=== PATIENT | male | born 1940 | race Caucasian/White ===

== ENCOUNTER → 2023-12-12 13:22 | Outpatient (REF) | payer MEDICARE, SELFPAY | LOC: REG 13:22 | PROVIDERS: ATTENDING PHYSICIAN Internal Medicine Critical Care Medicine; FAMILY PHYSICIAN Internal Medicine | DX: J47.9 Bronchiectasis, uncomplicated (principal) | CPT/HCPCS: 71046 ==

== ENCOUNTER → 2024-02-23 15:25 | Outpatient (REF) | payer MEDICARE, SELFPAY | LOC: RAD 15:25 | PROVIDERS: ATTENDING PHYSICIAN Physician Assistant | DX: R05.3 Chronic cough (principal) | CPT/HCPCS: 71046 ==

== ENCOUNTER 2025-03-11 21:30 | Inpatient (IN) | payer MEDICARE, SELFPAY ==
[2025-03-11] VITALS (9 sets, daily range): BP systolic 100–140; BP diastolic 62–117; BMI 27.5; BMI 26.9
[2025-03-11 15:01] LABS: Hematocrit 39.3 % (39.0-52.0); Hemoglobin 13.6 g/dL (13.0-18.0); Mean Corp Hgb Conc. 34.6 g/dL (33.0-37.0); Mean Corpuscular Volume 99.5 fL (80.0-94.0); Nucleated Red Blood Cells % 0 % (-); Platelet Count 233 10^3/uL (130-400); Red Cell Dist. Width 13.2 % (11.5-14.5)
[2025-03-11 15:24] LABS: ALT (SGPT) < 10 U/L (0-50); AST (SGOT) 27 U/L (17-59); Albumin 3.8 g/dl (3.5-5.0); Alkaline Phosphatase 116 U/L (38-126); Blood Urea Nitrogen 29 mg/dl (9-20); Calcium 8.5 mg/dl (8.4-10.2); Carbon Dioxide 24 mmol/L (22-30); Chloride 104 mmol/L (98-107); Glucose 119 mg/dl (70-99); Potassium 4.5 mmol/L (3.5-5.1); Sodium 135 mmol/L (135-145); Total Protein 6.7 g/dl (6.3-8.2); eGFR 24.41
--- NOTE | 2025-03-11 18:21 | ED.GENMED ---
History of Present Illness
General
Chief Complaint: Breathing Problem
Source: patient, spouse and family (Daughter)
Exam Limitations: none
Time Seen by Provider: 03/11/25 17:19
Nursing documentation reviewed up to this point in time: agreed with
History of Present Illness
History of Present Illness:
84-year-old male with a past medical history of hypertension, interstitial lung disease, congestive heart failure, reported history of dementia per family presents to the ER from home for evaluation of shortness of breath. Patient reportedly has
had increased shortness of breath over the past week or so. His says that his symptoms seem to be worse at night and that he wakes up gasping for air and has coughing fits at night. This morning breathing seem to be significantly worse and
palliative care nurse was visiting and noted that he was markedly hypoxic (reportedly in the 70s) and he was referred to the emergency room for assessment. He is on palliative care for his chronic lung disease and congestive heart failure. He does
wear home oxygen as needed�his reports that he wears 2 to 3 L usually at night very rarely during the daytime. Patient is somewhat agitated at being in the emergency room. He does admit to feeling short of breath but denies feeling chest
pain. They have not noticed any swelling in the legs. They have not noticed any fever.
Operating Room Surgical Technologist: Dr. Barfield
Rubber Compounder Formulator: Dr. Cevallos
Past History
Past History
ED Past Medical History: Asthma, HTN, Hypercholesterolemia and Other (Short term memory loss)
ED Past Surgical History: Tonsilectomy and Other
Social History
Tobacco: Former smoker
Alcohol: Daily (Nance 1)
Personal:
Living: with family
Review of Systems
Review of Systems
All Other Systems: ROS reviewed and negative except as documented in HPI and ROS
Constitutional: Denies fever
Respiratory: Reports cough and trouble breathing
Cardiac: Denies chest pain
ABD/GI: Denies abdominal pain, nausea or vomiting
: Denies flank pain
Musculoskeletal: Denies edema, neck pain or back pain
Neurological: Denies dizzy or headache
Phy Exam
Physical Exam
Physical Exam:
General: Awake, alert, somewhat agitated
Head: Normocephalic, atraumatic
Eyes: Conjunctiva normal
Throat: Airway intact, handling secretions
Neck: Trachea midline, no visible JVD noted
Lungs: Patient has pronounced rales at the lung bases bilaterally; he has resting tachypnea and is hypoxic to 82% requiring 6 L nasal cannula
Heart: Regular rate and rhythm, no murmurs, gallops, or rubs appreciated
Abd: Soft, non distended, nontender
Skin: no rash
Extremities: +1 edema in the legs around the lower calf and ankles bilaterally; good pulses in all extremities
Scores
Heart Failure Risk
Heart Failure Risk Score: Yes
History of Stroke or TIA: No
History of intubation for respiratory distress: No
Heart rate on ED arrival >/= 110: No
SaO2 <90% on arrival on room air: Yes
HR >/=110 during 3min walk test (or too ill to perform test): Yes
ECG has acute ischemic changes: No
Urea >/=12mmol/L (BUN 33.6mg/dL): No
Serum CO2>/=35mmol/L: No
Troponin I or T elevated to NH Level (0.4mg/dL): No
NT-proBNP >/=5,000ng/L (5,000pg/ml): Yes
HF Risk Score: 4
Admission Status: HIGH RISK 26.1% Consider SNF treatment or admission to hospital
Heart Score for Chest Pain Patients
STEMI patient?: Not applicable
Withdrawal Assessment of Alcohol
Withdrawal Assessment Completed?: Not applicable
Course
Orders/Labs/Results
Orders:
Orders
03/11/25 14:45
Chest [CR Chest - 2 Views ] Urgent
Comment:
Reason For Exam: sob, hypoxia
03/11/25 14:50
Complete Blood Count/With Diff Urgent
Comprehensive Metabolic Panel Urgent
NT-proBNP Urgent
Comment: ADD ON
03/11/25 18:08
Add On- LAB Urgent
Tests Added?: BNP
03/11/25 18:20
Haloperidol Lactate [Haldol] 2.5 mg IV NOW STA
03/11/25 18:27
Electrocardiogram (*1) Urgent
Reason for Study: Shortness of Breath
EKG- Treatment ONCE
03/11/25 18:44
Furosemide [Lasix] 40 mg IV NOW STA
Abnormal Lab Results
03/11/25
14:50
RBC 3.95 L 10^6/uL
(4.70-6.10)
MCV 99.5 H fL
(80.0-94.0)
MCH 34.4 H pg
(27.0-31.0)
Absolute Neuts (auto) 6.8 H 10^3/uL
(1.4-6.5)
Absolute Lymphs (auto) 0.9 L 10^3/uL
(1.2-3.4)
Absolute Monos (auto) 1.1 H 10^3/uL
(0.1-0.6)
Lymphocytes % 10.2 L %
(20.5-51.1)
Monocytes % 11.9 H %
(1.7-9.3)
BUN 29 H mg/dl
(9-20)
Creatinine 2.5 H mg/dL
(0.7-1.3)
Glucose 119 H mg/dl
(70-99)
03/11/25 14:50
03/11/25 14:50
Vital Signs
Initial and Last Documented VS:
Initial Vital Signs
Temp Pulse Resp BP Pulse Ox
36.8 C 79 28 126/76 82
03/11/25 14:36 03/11/25 14:36 03/11/25 14:36 03/11/25 14:36 03/11/25 14:36
Last Documented Vital Signs
Temp Pulse Resp BP Pulse Ox
36.8 C 78 28 135/117 94
03/11/25 14:36 03/11/25 18:49 03/11/25 14:36 03/11/25 18:49 03/11/25 18:27
MDM/Problems Addressed
Differential Diagnosis Includes:
CHF, pneumonia, interstitial lung disease, anemia
MDM/Problems Addressed:
84-year-old male presents for evaluation of increasing shortness of breath, cough, orthopnea/PND over the past week. He is hypoxic and tachypneic requiring 6 L nasal cannula. With supplemental oxygen his respiratory status stabilized and he is not
exhibiting any signs of respiratory distress. He is agitated, family reports that he has a history of dementia he is trying to get out of bed and pull out wires. Will dose with some IV Haldol for delirium/agitation. He had labs in triage
including CBC which showed no anemia or leukocytosis, CMP which showed acute renal insufficiency with a creatinine of 2.5 from a baseline of 1.6 likely cardiorenal. His chest x-ray appears to show pulmonary edema superimposed on chronic
interstitial disease�overall clinical picture consistent with CHF exacerbation. I did have to add on a proBNP to his triage labs. I do think he requires admission for acute on chronic respiratory failure with hypoxia secondary to CHF exacerbation.
Treat with IV Lasix. Discussed with hospitalist for admission.
Chronic conditions affecting care:
Interstitial lung disease, congestive heart failure
*Radiology
Radiology exam reviewed: preliminary read by ED provider and radiology read reviewed
*Pulse Oximetry
SaO2: 94
Nasal Cannula flow liters per minute: 6
Patient hypoxic: yes (82%)
*EKG
Interpreted by ED Provider?: Yes
Heart Rate: 76
Rate: normal
Rhythm: sinus
Comins: left axis deviation
Interval: first degree heart block
QRS Pattern: right bundle branch block (Incomplete right bundle branch block) and other (Left anterior fascicular block)
Ischemia: other (Possible lateral infarct)
*Critical Care Note
Total Time (30-74mins, 75-104mins- exclusive of procedures): Not Applicable
Data Reviewed
Review of Other/Old Records Reveals: Labs and Records
Source: patient, records, spouse and family
Patient Management
Discussion with other providers: Hospitalist (Discussed with hospitalist)
Escalation/DeEscalation of care consider admission/obs:
Admission indicated
ED Attending Note
-
Portions of this chart may have been created with voice recognition software.� Occasional wrong word or��sound alike� substitutions may have occurred due to the inherent limitations of voice recognition software.
Discharge Plan
Departure
Patient Disposition: Admit
Date of Disposition: 03/11/25
Time of Disposition: 19:14
Admit to doctor: Eli
Presentation/result/management discussed w/ accepting MD/DO: Hospitalist
Discharge Problem:
Acute on chronic respiratory failure with hypoxia, CHF exacerbation, CALVIN (acute kidney injury)
Prescriptions:
No Action
atorvastatin 20 MG tablet
20 mg PO QPM
amlodipine 2.5 MG tablet
2.5 mg PO DAILY
montelukast 10 MG tablet
10 mg PO QPM
ipratropium-albuterol 3 ML solution for nebulization
3 ml inhalation QID Qty: 60 0RF
benzonatate 100 MG capsule
100 mg PO TIDPRN PRN (Reason: cough)
furosemide 40 MG tablet
40 mg PO DAILY Qty: 30 0RF
atorvastatin 20 MG tablet
20 mg PO QPM Qty: 30 0RF
cyanocobalamin (vitamin B-12) 1,000 MCG tablet
1,000 mcg PO DAILY Qty: 30 0RF
dextromethorphan-guaifenesin 10 ML syrup
5 ml PO Q4HPRN PRN (Reason: cough) Qty: 1 0RF
pantoprazole 40 MG tablet,delayed release (DR/EC)
40 mg PO BID Qty: 60 0RF
ferrous sulfate [FeroSul] 325 MG tablet
325 mg PO DAILY Qty: 30 0RF
folic acid 1 MG tablet
1 mg PO DAILY Qty: 30 0RF
fluticasone propionate [Flovent HFA] 1 PUFF HFA aerosol inhaler
2 puff inhalation R DAILY Qty: 0 0RF
prednisone 20 MG tablet
20 mg PO DAILY Qty: 17 0RF
Rx Instructions:
40mg daily for 5 days, 20mg for 5 days, 10mg for 3 days and stop
oxycodone 5 MG tablet
5 mg PO Q4HPRN PRN (Reason: mod pain) Qty: 5 0RF
sennosides-docusate sodium 1 TABLET tablet
1 tab PO DAILYPRN PRN (Reason: constipation) Qty: 5 0RF
apixaban [Eliquis] 2.5 MG tablet
2.5 mg PO BID 14 Days Qty: 28 0RF
Rx Instructions:
take Eliquis 2.5 mg BID for 2 weeks then 5 mg BID thereafter
apixaban [Eliquis] 5 MG tablet
5 mg PO BID Qty: 0 0RF
Rx Instructions:
restart 5 mg BID after 2 weeks of 2.5 mg BID
Referrals:
EDIL, APRIL [Other]
Interventions
Interventions:
*Risk Screen - Suicide Last Done: 03/11/25 14:36
*General Assessment Last Done: 03/11/25 14:36
*Neglect/Abuse Screening Last Done: 03/11/25 14:36
ED- Cardiac Assessment Last Done: 03/11/25 18:27
ED- Pulmonary Assessment Last Done: 03/11/25 18:27
Discharge Date and Time
Print Language: TURKISH
[2025-03-11] MEDS: HALDOL 2.5 MG IV (18:42)
[2025-03-11] MEDS: LASIX 40 MG IV (18:49)
[2025-03-11] MEDS: VERSED 2 MG IV (19:23)
--- NOTE | 2025-03-11 20:25 | HPS.HSE ---
Family Physician
-
Family Physician: APRIL SOLO
Chief Complaint
-
Shortness of breath
History of Present Illness
This is a 84-year-old with past medical history significant for CHF with preserved EF, stage I diastolic dysfunction, dementia, paroxysmal atrial fibrillation on anticoagulation, stage IV CKD, history of pulmonary fibrosis/interstitial lung disease
who is currently on 2 L nocturnal home O2, COPD/asthma who presents to the Emergency Department with shortness of breath over the last 1-1/2 weeks.
Patient unable to provide history secondary to progressive dementia over the last several years. Patient has had shortness of breath for many years now and is currently on nocturnal oxygen over the last several months. Family reported that in the
last 24 weeks he is having increasing oxygen requirement and is using his oxygen now during the daytime. Was defined oxygen saturation of 84% and then 94 to 95% on 2 L. They report incessant coughing especially at night which is productive of
copious amount of phlegm. They have not noted any fevers chills or diaphoresis. He has not complained of having any chest pain. They have not had audible wheezing at home. He has no known sick contacts and he has no recent hospitalizations.
Family reports that his weight is usually around 220 pounds and has not changed recently. He has had 1 recent renal follow-up and told that he has stage IV CKD. DF slightly increase his diuretics from 40 daily to 40 daily and 40 twice daily on
every other day.
On arrival in the emergency department patient was confused similar to his baseline and intermittently agitated requiring sedation. He is tachypneic to the low 30s and high 20s, blood pressure was 120/74 and pulse rate was 78. He is currently
satting 92% on 3 L. His temperature was 98.3. His
Chest ray shows multifocal opacities consistent with possible superimposed pneumonitis and pulmonary fibrosis and possible interstitial pulmonary edema. ECG with sinus rhythm heart rate of [address] or T wave changes. His BNP was
elevated at 2600. CBC was unremarkable. Electrolytes were normal. BUN/creatinine were 29 and 2.5 with a normal glucose.
Medical History
Past Medical History
Past Medical History: Reports Arrhythmia and Other
Additional Past Medical History:
Paroxysmal atrial fibrillation
Hypertension
Interstitial lung disease
LINH
Pulmonary fibrosis on 2 L nocturnal home O2
Asthma/COPD overlap
CKD stage IV
History of eosinophilic pneumonitis
Past Surgical History: Reports Orthopedic
Social History
Tobacco: Former Smoker
Alcohol: None
Drug: None
Living: With Family
Family History
Family History: Not pertinent
Allergies / Home Medications
Allergies reflects when Allergies were last updated in [employer].
Home Medications with original date entered in [employer]
Allergy/Medication List:
Allergies
Allergy/AdvReac Type Severity Reaction Status Date / Time
aspirin Allergy Rash Verified 08/20/21 19:04
Penicillins Allergy Unknown Verified 08/20/21 22:03
Home Medications
amlodipine 2.5 mg tablet 2.5 mg PO DAILY Blood pressure 07/18/21
atorvastatin 20 mg tablet 20 mg PO QPM High cholesterol 07/18/21
ipratropium 0.5 mg-albuterol 3 mg (2.5 mg base)/3 mL nebulization soln 3 ml inhalation QID ##60 07/18/21
montelukast 10 mg tablet 10 mg PO QPM Lung/breathing issues 07/18/21
benzonatate 100 mg capsule 100 mg PO TIDPRN PRN cough 08/14/21
atorvastatin 20 mg tablet 20 mg PO QPM #30 tabs 08/17/21
cyanocobalamin (vitamin B-12) 1,000 mcg tablet 1,000 mcg PO DAILY #30 tabs 08/17/21
dextromethorphan-guaifenesin 10 mg-100 mg/5 mL oral syrup 5 ml PO Q4HPRN PRN cough ##1 08/17/21
ferrous sulfate 325 mg (65 mg iron) tablet (FeroSul) 325 mg PO DAILY #30 tabs 08/17/21
fluticasone propionate 110 mcg/actuation HFA aerosol inhaler (Flovent HFA) 2 puff inhalation R DAILY Lung/breathing issues ##0 08/17/21
folic acid 1 mg tablet 1 mg PO DAILY #30 tabs 08/17/21
furosemide 40 mg tablet 40 mg PO DAILY #30 tabs 08/17/21
pantoprazole 40 mg tablet,delayed release 40 mg PO BID #60 tabs 08/17/21
prednisone 20 mg tablet 20 mg PO DAILY #17 tabs 08/17/21
apixaban 2.5 mg tablet (Eliquis) 2.5 mg PO BID 14 days #28 tabs 08/23/21
apixaban 5 mg tablet (Eliquis) 5 mg PO BID Blood clot prevention/tx ##0 08/23/21
oxycodone 5 mg tablet 5 mg PO Q4HPRN PRN mod pain #5 tabs 08/23/21
sennosides 8.6 mg-docusate sodium 50 mg tablet 1 tab PO DAILYPRN PRN constipation #5 tabs 08/23/21
Review of Systems
-
Unable to obtain full review of systems at this time due to: Dementia
History Source: Family
Constitutional: Reports No Symptoms
EENT: Reports No Symptoms
Respiratory: Reports Cough and Trouble Breathing
Cardiac: Denies Chest Pain or Diaphoresis
Abdomen/GI: Reports No Symptoms
: Reports No Symptoms
Musculoskeletal: Reports No Symptoms
Skin: Reports No Symptoms
Neurological: Reports No Symptoms
Endocrine: Reports No Symptoms
Hematologic/Lymphatic: Reports No Symptoms
Physical Exam
Vital Signs
Vital Signs
Temp Pulse Resp BP Pulse Ox
98.3 F 78 36 123/74 94
03/11/25 14:36 03/11/25 19:30 03/11/25 19:30 03/11/25 19:00 03/11/25 18:27
Physical Exam
General: Well Developed and Well Nourished
HEENT: NormoCephalic, Anicteric, Moist mucous membranes, PERRLA and Oxygen
Respiratory: Rales and Crackles
Cardiac: S1/S2 and Regular Rhythm
Breast: Deferred by me
GI: Soft, Non Tender and Normal Bowel Sounds
Rectal: Deferred by Provider
Genito-urinary: Deferred by me
Musculoskeletal: No Clubbing, No Cyanosis and No Edema
Skin: Warm
Neuro: Alert, Oriented (to person. Confused) and Nonfocal/grossly intact
Hematologic/Lymphatic: No Lymphadenopathy
Psych: Calm
Laboratory Results
-
03/11/25 14:50
03/11/25 14:50
Laboratory Results
Total Bilirubin 1.2 mg/dl (0.2-1.3) 03/11/25 14:50
AST 27 U/L (17-59) 03/11/25 14:50
ALT < 10 U/L (0-50) 03/11/25 14:50
Alkaline Phosphatase 116 U/L (38-126) 03/11/25 14:50
Data Reviewed
-
Diagnostic Radiology: Image Personally Visualized and interpreted and Report Reviewed by me
Medical Tests (Nuc Med, Echo, EKG etc): Image Personally Visualized and interpreted
Lab Data: Labs Reviewed by me
Old Records: Reviewed
Impression/Plan
-
IMPRESSION:
84-year-old with interstitial lung disease, paroxysmal atrial fibrillation, diastolic heart failure stage IV CKD with baseline creatinine that is unknown but last creatinine here was around 1.5 now 2.5 coming in with shortness of breath. Bilateral
interstitial infiltrates on x-ray consistent with pulmonary edema but also some patchy findings which could be superimposed pneumonia versus worsening interstitial lung disease. Overall weight is the same at 220 pounds without any other overt
features of volume overload. Also otherwise no apparent systemic infection but cannot rule out PNA entirely.
PLAN:
CHF - ? pulm edema with elevated BNP but no overt volume overload on exam. Diuresis will rapidly result in improvement and preservation of renal function if this is CHF exacerbation. HD stable.
- admit to telemetry
- lasix 40 iv bid for now
- daily weights, i/os and monitor creatinine
- check echo in am
- continue amlodipine
- cardiology consult
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
- start ceftriaxone/azithromycin
- strep pneumo ag
- blood culturs if spike
- start IV solumedrol 40 bid
- continue his nebs
- pulmonary consultation
AFIB - Rate controlled and NSR at this time
- continue eliquis
patient not on beta blockade
CKD IV vs CALVIN - Unclear if any recent worsening of renal function
- obtain labs from pmd in am (family reports chemistry from 3 months ago and also yesterday)
- avoid nephrotoxins for now
- kidney/bladder us
DVT PPX - on apixaban
Code status - DNR
[2025-03-11 22:38] LABS: COVID-19 Antigen Negative (Negative)
[2025-03-11] MEDS: ROCEPHIN 1000 MG IV (23:54)
[2025-03-11] MEDS: STERILE WATER FOR INJECTION 10 ML IV (23:55)
[2025-03-11] MEDS: SOLU-MEDROL PF 125 MG IV (23:55)
[2025-03-12] MEDS: VIBRAMYCIN 260 MG IV (00:07)
[2025-03-12 00:39] VITALS: BMI 26.9
[2025-03-12] MEDS: ROBITUSSIN DM 5 ML PO (01:00)
[2025-03-12 07:04] LABS: Hematocrit 38.3 % (39.0-52.0); Hemoglobin 12.9 g/dL (13.0-18.0); Mean Corp Hgb Conc. 33.7 g/dL (33.0-37.0); Mean Corpuscular Volume 101.3 fL (80.0-94.0); Platelet Count 235 10^3/uL (130-400); Red Cell Dist. Width 13.2 % (11.5-14.5)
[2025-03-12] MEDS: FLOVENT 110 MCG INHALER 2 PUFF INH (07:23)
[2025-03-12] MEDS: DUONEB 3 ML INH ×2 (07:23→11:04)
[2025-03-12 07:39] LABS: Blood Urea Nitrogen 31 mg/dl (9-20); Calcium 8.4 mg/dl (8.4-10.2); Carbon Dioxide 23 mmol/L (22-30); Chloride 106 mmol/L (98-107); Estimated Creatinine Clearance 24 ml/min; Glucose 129 mg/dl (70-99); HDL Cholesterol 48 mg/dl; LDL Cholesterol, Calculated 104 mg/dl; Magnesium 2.4 mg/dl (1.6-2.3); Potassium 4.9 mmol/L (3.5-5.1); Sodium 137 mmol/L (135-145); Very Low Density Lipoprotein 16 mg/dl (0-30); eGFR 23.29
[2025-03-12 07:52] VITALS: BP 140/69
--- NOTE | 2025-03-12 07:56 | CON.CAR ---
Addendum entered and electronically signed by Dao Hernandez MD 03/12/25 12:17:
Patient seen and examined in collaboration with PGY-2 resident; agree with below.
- 84-year-old male with paroxysmal atrial fibrillation (on Eliquis), chronic HFpEF, ILD/asthma/COPD/pulmonary fibrosis, CKD, and progressive dementia; patient is currently on palliative care but has been developing some progressive shortness of
breath over the past few weeks.
- The patient's weight is actually down from his baseline; patient states that he is feels well currently.
- Exam: Heart regular rate and rhythm, normal S1-S2, no M/R/G; lungs fine bibasilar crackles (chronic, ILD); abdomen soft; extremities trace edema.
- A/P:
- Chronic HFpEF: The patient actually appears to be fairly compensated on examination, and he is actually below his dry weight. Recommend continuing home dose of Lasix 40 mg PO daily.
- PAF: Continue Eliquis; on no rate-controlling medications secondary to previous baseline low heart rates.
- CKD: The patient has worsening renal dysfunction; likely conservative management as the patient is on palliative care.
- Disposition: Ultimately, patient should likely progress from palliative care to hospice sooner rather than later; no further cardiac recommendations at this time.
Original Note:
Documented by User: Goldy King MD, Resident 03/12/25 10:46
Consultation
Consultation Request
Date/Time Consultation Requested: 03/11/2025
Date/Time Consultation Performed: 03/12/2025
Requesting Provider: Esme Benitez
Performing Provider: Mary Dc
Reason for Consultation: CHFpEF, interstitial edema
Medical History
-
Chief Complaint: Shortness of breath
History of Present Illness:
Patient is a 84-year-old male, with past medical history of paroxysmal atrial fibrillation, chronic HFpEF, CKD stage IV, interstitial lung disease, asthma/COPD overlap, pulmonary fibrosis, sleep apnea and dementia. He has been on nocturnal therapy
since August of this year and is on palliative care. He presented to the emergency department with shortness of breath over the last couple of weeks.
Patient is unable to provide any history and feels like he is completely blacked out about how he got to the hospital. He was recently started on nocturnal oxygen therapy by pulmonology for worsening dyspnea and cough. They also mentioned that due
to extensive lung fibrosis cough would remain an issue. History obtained from chart review and calling Patient's who reported that he was not feeling well this week but was not able to pinpoint what was going on but he was more short of breath
and was coughing a lot a lot of sputum. He also required oxygen during the daytime more often than before. He did not have any fever or chills. He is on palliative care so the called and the nurse came in to check on him on Friday and his
oxygen saturation was down to 77 and they decided to bring him to the ER. Possible orthopnea/PND. No reports of any chest pain, palpitations, fluttering of chest, or leg edema.
Past Medical History
Past Medical History: Arrhythmias (Paroxysmal atrial fibrillation), HTN, Hypercholesterolemia, Renal Failure (CKD-IV) and Other (ILD, Asthma, Bronchiectasis, Sleep apnea(oxygen dependent at home),History of eosinophilic pneumonitis,CHF with
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
Past Surgical History: Other (Multiple skin cancer excisions, VATS lung biopsy(age 38), right hip surgery)
Social History
Tobacco: Former Smoker (Quit >10yrs ago)
Alcohol: Daily
Drug: None
Personal:
Living: With Family
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
Family History
Family History: Other (Non-contributory)
Allergies / Home Medications
Allergy/AdvReac Type Severity Reaction Status Date / Time
aspirin Allergy Rash Verified 08/20/21 19:04
Penicillins Allergy Unknown Verified 08/20/21 22:03
�Medication �Instructions �Recorded �Confirmed �Type
amlodipine 2.5 mg tablet 2.5 mg PO DAILY Blood pressure 12/22/21 01/24/22 History
atorvastatin 20 mg tablet 20 mg PO QPM High cholesterol 07/18/21 08/20/21 History
ipratropium 0.5 mg-albuterol 3 mg 3 ml inhalation QID ##60 07/18/21 08/20/21 Rx
(2.5 mg base)/3 mL nebulization
soln
montelukast 10 mg tablet 10 mg PO QPM Lung/breathing issues 07/18/21 08/20/21 History
benzonatate 100 mg capsule 100 mg PO TIDPRN PRN cough 08/14/21 08/20/21 History
atorvastatin 20 mg tablet 20 mg PO QPM #30 tabs 08/17/21 08/20/21 Rx
cyanocobalamin (vitamin B-12) 1,000 mcg PO DAILY #30 tabs 08/17/21 08/20/21 Rx
1,000 mcg tablet
dextromethorphan-guaifenesin 10 5 ml PO Q4HPRN PRN cough ##1 08/17/21 08/20/21 Rx
mg-100 mg/5 mL oral syrup
ferrous sulfate 325 mg (65 mg 325 mg PO DAILY #30 tabs 08/17/21 08/20/21 Rx
iron) tablet (FeroSul)
fluticasone propionate 110 2 puff inhalation R DAILY 08/17/21 08/20/21 Rx
mcg/actuation HFA aerosol inhaler Lung/breathing issues ##0
(Flovent HFA)
folic acid 1 mg tablet 1 mg PO DAILY #30 tabs 08/17/21 08/20/21 Rx
furosemide 40 mg tablet 40 mg PO DAILY #30 tabs 08/17/21 08/20/21 Rx
pantoprazole 40 mg tablet,delayed 40 mg PO BID #60 tabs 08/17/21 08/20/21 Rx
release
prednisone 20 mg tablet 20 mg PO DAILY #17 tabs 08/17/21 08/20/21 Rx
apixaban 2.5 mg tablet (Eliquis) 2.5 mg PO BID 14 days #28 tabs 08/23/21 Rx
apixaban 5 mg tablet (Eliquis) 5 mg PO BID Blood clot 08/23/21 08/20/21 Rx
prevention/tx ##0
oxycodone 5 mg tablet 5 mg PO Q4HPRN PRN mod pain #5 tabs 08/23/21 Rx
sennosides 8.6 mg-docusate sodium 1 tab PO DAILYPRN PRN constipation 08/23/21 Rx
50 mg tablet #5 tabs
Review of Systems
-
All other systems: Negative unless noted
Physical Exam
Vital Signs
Temp Pulse Resp BP Pulse Ox
97.5 F 74 18 140/69 95
03/12/25 07:52 03/12/25 07:52 03/12/25 07:52 03/12/25 07:52 03/12/25 07:52
Lab Results
03/12/25 06:42
03/12/25 06:42
Fuk-E-Jdsnoyhprgq Pept 2650 pg/ml 03/11/25 14:50
Physical Exam
General: No Apparent Distress, Comfortable and Other (Confused, sitting upright in bed, on 3 L of oxygen via nasal cannula.)
HEENT: Moist Mucous Membranes
Respiratory: Crackles (Bilateral crackles at lung bases)
Cardiac: S1/S2, Regular Rhythm and Other (Trace peripheral edema)
GI: Soft, Non Tender and Normal Bowel Sounds
Musculoskeletal: No Clubbing and No Cyanosis
Skin: Warm and Dry
Neuro: Awake and Alert (Oriented to name and place only, no motor deficits, memory issues)
Psych: Calm
Impression / Plan
-
Impression
Severe hypoxemia, abnormal findings on chest imaging with a history of chronic HFpEF, asthma/COPD, bronchiectasis, lung fibrosis and eosinophilic pneumonia.
Overall clinical picture, more suggestive of lung fibrosis/ILD with a component of chronic HFpEF.
Chest x-ray findings 03/11/2025
Patchy bilateral alveolar airspace disease superimposed upon chronic interstitial disease/fibrosis. Findings may represent a superimposed pneumonia versus less likely interstitial edema. Progression of chronic lung disease is also a consideration.
Last echo 08/15/2024
LV ejection fraction is 65-70%. No regional wall motion abnormalities are
seen. Stage I diastolic dysfunction suggestive of abnormal relaxation.
-Normal right ventricular size and function.
-Mitral valve opens normally. Mild mitral regurgitation.
-Trileaflet aortic valve. Aortic valve opens normally.
-Trace tricuspid regurgitation. Estimated pulmonary artery pressure of 25-30
mmHg, assuming a right atrial pressure of 5 mmHg.
-Mildly dilated aortic root (SOV 4.2 cm) and ascending aorta (4.2 cm). Aortic
arch not well visualized.
EKG 03/11/2025
SINUS RHYTHM WITH 1ST DEGREE A-V BLOCK
INCOMPLETE RIGHT BUNDLE BRANCH BLOCK
LEFT AXIS DEVIATION
BNP 2650
Magnesium 2.4, potassium 4.9
Normal lipid panel
#Chronic HFpEF
Patient appears euvolemic
Chest has dry crackles-more likely related to underlying primary lung process rather than heart failure
Received IV Lasix in the ER and this morning
Will switch back to oral Lasix at home dose
Elevated creatinine concerning
Continue telemetry
#Paroxysmal atrial fibrillation
Currently patient is in normal sinus rhythm and rate is 68
Patient remains on Eliquis 2.5 mg twice daily
He is not on any rate control or rhythm control medications
#CALVIN
Monitor serum creatinine
Follows up with nephrology regarding CKD stage IV
#Hyperlipidemia
Continue atorvastatin
Lipid panel stable

Documented by User: Dao Hernandez MD 03/12/25 12:12
Consultation
Consultation Request
Performing Provider: Dao Hernandez MD
Data Reviewed
-
EKG: Tracing Personally Visualized and interpreted (Sinus rhythm at 76 bpm with left axis deviation and incomplete right bundle branch block; possible lateral infarct.)
Medical Tests (Nuc Med, Echo etc): Report Reviewed by me (08/15/2021): LVEF 65-70%; mild MR.)
Labs: Labs Reviewed by me, Discussed with Physician (PGY-2 resident) and Discussed with Patient
[2025-03-12] MEDS: SENOKOT-S 1 TABLET PO (09:03)
[2025-03-12] MEDS: VIBRAMYCIN 100 MG PO ×2 (09:03→20:10)
[2025-03-12] MEDS: PROTONIX 40 MG PO ×2 (09:03→20:10)
[2025-03-12] MEDS: LASIX 40 MG IV (09:03)
[2025-03-12] MEDS: ELIQUIS 5 MG PO ×2 (09:03→20:10)
[2025-03-12] MEDS: SOLU-MEDROL PF 40 MG IV ×2 (09:04→20:10)
[2025-03-12] MEDS: VITAMIN B-12 1000 MCG PO (10:51)
[2025-03-12 11:36] VITALS: BP 106/62
[2025-03-12 11:57] VITALS: BMI 26.9
--- NOTE | 2025-03-12 12:07 | PTCARENOTE ---
pt keeps asking for his . I respond and then one minute later asking the same thing. he is on repeat with questions his short term memory seems to be very impaired. Pt keeps asking where he is at , why he is here, what occured that he came in.
despite giving him the answers he keeps asking same question. Pt is on a high fall risk, yellow bracelt on and outside door. bed and chair alarm on. Pt has call que[place] but does not know or remember to use it. PT is on very high fall risk precautions,
He was educated to call for me if he needs anything. This nurse is sitting outside his door for increased monitoring
--- NOTE | 2025-03-12 13:24 | CON.PUL ---
Consultation
Consultation Request
Date/Time Consultation Requested: 03/12/2025
Date/Time Consultation Performed: 03/12/2025
Medical History
-
Chief Complaint: Shortness of breath
History of Present Illness:
Patient is a very pleasant 84-year-old gentleman with known history of underlying pulmonary fibrosis on nightly 2 L supplemental oxygen as well as COPD/asthma who presented to emergency room with shortness of breath which has been gradually
worsening over the last week to week and a half. Patient does not report any fever or chills but does report increased cough with clear to mucoid expectoration. Family also reported increasing cough particularly at night and increasing shortness
of breath. Normally he has not been using any supplemental oxygen during daytime. Lately noticed that mid 80s saturations. In the emergency room he was noted to have a chest x-ray suggestive of increased interstitial opacities concerning for
volume overload, pneumonia versus progression of pulmonary fibrosis. He was admitted to the hospitalist service and was started on antibiotic, steroids and diuretics. Pulmonary consultation was requested for further input.
Medical History
Past Medical History
Past Medical History: Reports Arrhythmia and Other
Additional Past Medical History:
Paroxysmal atrial fibrillation
Hypertension
Interstitial lung disease
LINH
Pulmonary fibrosis on 2 L nocturnal home O2
Asthma/COPD overlap
CKD stage IV
History of eosinophilic pneumonitis
Past Surgical History: Reports Orthopedic
Social History
Tobacco: Former Smoker
Alcohol: None
Drug: None
Living: With Family
Family History
Family History: Not pertinent
Allergies / Home Medications
Allergies
Allergy/AdvReac Type Severity Reaction Status Date / Time
aspirin Allergy Rash Verified 08/20/21 19:04
Penicillins Allergy Unknown Verified 08/20/21 22:03
Home Medications
�Medication �Instructions �Recorded �Confirmed �Last Taken �Type
amlodipine 2.5 mg tablet 2.5 mg PO DAILY Blood pressure 07/18/21 08/20/21 Unknown History
atorvastatin 20 mg tablet 20 mg PO QPM High cholesterol 07/18/21 08/20/21 Unknown History
ipratropium 0.5 mg-albuterol 3 mg 3 ml inhalation QID ##60 07/18/21 08/20/21 Unknown Rx
(2.5 mg base)/3 mL nebulization
soln
montelukast 10 mg tablet 10 mg PO QPM Lung/breathing issues 07/18/21 08/20/21 Unknown History
benzonatate 100 mg capsule 100 mg PO TIDPRN PRN cough 08/14/21 08/20/21 Unknown History
atorvastatin 20 mg tablet 20 mg PO QPM #30 tabs 08/17/21 08/20/21 Unknown Rx
cyanocobalamin (vitamin B-12) 1,000 mcg PO DAILY #30 tabs 08/17/21 08/20/21 Unknown Rx
1,000 mcg tablet
dextromethorphan-guaifenesin 10 5 ml PO Q4HPRN PRN cough ##1 08/17/21 08/20/21 Unknown Rx
mg-100 mg/5 mL oral syrup
ferrous sulfate 325 mg (65 mg 325 mg PO DAILY #30 tabs 08/17/21 08/20/21 Unknown Rx
iron) tablet (FeroSul)
fluticasone propionate 110 2 puff inhalation R DAILY 08/17/21 08/20/21 Unknown Rx
mcg/actuation HFA aerosol inhaler Lung/breathing issues ##0
(Flovent HFA)
folic acid 1 mg tablet 1 mg PO DAILY #30 tabs 08/17/21 08/20/21 Unknown Rx
furosemide 40 mg tablet 40 mg PO DAILY #30 tabs 08/17/21 08/20/21 Unknown Rx
pantoprazole 40 mg tablet,delayed 40 mg PO BID #60 tabs 08/17/21 08/20/21 Unknown Rx
release
prednisone 20 mg tablet 20 mg PO DAILY #17 tabs 08/17/21 08/20/21 Unknown Rx
apixaban 2.5 mg tablet (Eliquis) 2.5 mg PO BID 14 days #28 tabs 08/23/21 Unknown Rx
apixaban 5 mg tablet (Eliquis) 5 mg PO BID Blood clot 08/23/21 08/20/21 Unknown Rx
prevention/tx ##0
oxycodone 5 mg tablet 5 mg PO Q4HPRN PRN mod pain #5 tabs 08/23/21 Unknown Rx
sennosides 8.6 mg-docusate sodium 1 tab PO DAILYPRN PRN constipation 08/23/21 Unknown Rx
50 mg tablet #5 tabs
Review of Systems
-
Hematologic/Lymphatic: Other (All 14 systems reviewed and negative except as stated above in the history of present illness.)
Vitals / Labs / Diagnostic Testing
Vital Signs
Temp Pulse Resp BP Pulse Ox
97.5 F 90 18 106/62 99
03/12/25 11:36 03/12/25 11:36 03/12/25 11:36 03/12/25 11:36 03/12/25 11:36
Lab Data
03/12/25 06:42
03/12/25 06:42
Diagnostic Testing:
Physical Exam
-
HEENT: Normocephalic
Cardiovascular: S1/S2 and Peripheral Edema (Trace pedal edema bilaterally)
Respiratory: Rales (Bilateral crackles mostly in the posterior base)
GI: Soft and Non Distended
Neurology: Awake and Alert
Skin: Warm
General: Comfortable
Assessment
-
#1. Acute on chronic hypoxic respiratory failure with progressive IPF
- Suspect primarily related to progression of underlying interstitial lung disease/IPF.
- Clinically does not appear to be volume overloaded, otherwise afebrile with a normal WBC count. Pneumonia appears to be less likely
- Check procalcitonin level, if negative can discontinue antibiotics
#2. Suspect acute exacerbation of underlying IPF.
-Yaw 09/29/23: FVC 3.01/69%, FEV1 2.23/72%, ratio 74PFT 06/14/22: FVC 2.78/61%, FEV1 2.17/67%, ratio 78. TLC 4.33/55%, DLCO 11.55/41%. when compared to January, spirometry is stable. Moderate obstructive and restrictive process with severe gas exchange
defect the unit is fine when it gets busier
- Prior imagings reviewed, patient has known UIP pattern with underlying pulmonary fibrosis.
- Increased bilateral interstitial markings suspicious for flare of underlying IPF
- Agree with continuing IV steroids for now, supplemental oxygen.
- Currently on antibiotics, if procalcitonin negative can discontinue
Goals of care discussion:
Met with patient, patient's spouse as well as daughter at bedside. Patient follows up with palliative care service as outpatient. We discussed regarding the progressive nature of underlying pulmonary fibrosis. Patient is leaning towards staying
more comfortable rather than pursuing any aggressive treatment. Family also inclined to pursue hospice care. I feel this is an appropriate plan of care at this point considering patient's advanced age and progressive pulmonary fibrosis and
respiratory failure.
-Recommend inpatient hospice evaluation
- CODE STATUS DNR/DNI
Other medical diagnoses:
- Bronchiectasis
- Asthma/COPD overlap
- Suspect aspiration, based on history coughing and occasionally choking while eating
- Prior history of obstructive sleep apnea
- Atrial fibrillation, on chronic anticoagulation
- Chronic kidney disease
- Heart failure with preserved ejection fraction
Resume follow-up with [facility] pulmonary clinic, patient follows up with Dr. Barfield
Total time spent on this consultation/encounter __85__ minutes which includes review of history, physical exam, medications, laboratory data, personal review of imaging, extensive review of outpatient records, discussion with care team and
respiratory therapy.
Data:
CXR 02/2025: Patchy bilateral alveolar airspace disease superimposed upon chronic interstitial disease/fibrosis. Findings may represent a superimposed pneumonia versus less likely interstitial edema. Progression of chronic lung disease is also a
consideration.
CT Chest 05/2022: CT findings compatible with interstitial fibrosis with usual interstitial pneumonitis pattern. Mild honeycombing within the posterior lung bases, right greater than left.
Significant interval improvement in patchy groundglass opacity previously seen throughout both lungs, compatible with interval resolution of acute interstitial and groundglass pneumonitis pattern.
No significant pleural effusions are identified.
Coronary artery calcifications are present. Please correlate with symptoms of and risk factors for coronary artery disease, with further workup as clinically appropriate.
ECHO 07/2021: -LV ejection fraction is 65-70%. No regional wall motion abnormalities are
seen. Stage I diastolic dysfunction suggestive of abnormal relaxation.
-Normal right ventricular size and function.
-Mitral valve opens normally. Mild mitral regurgitation.
-Trileaflet aortic valve. Aortic valve opens normally.
-Trace tricuspid regurgitation. Estimated pulmonary artery pressure of 25-30
mmHg, assuming a right atrial pressure of 5 mmHg.
-Mildly dilated aortic root (SOV 4.2 cm) and ascending aorta (4.2 cm). Aortic
arch not well visualized.
--- NOTE | 2025-03-12 14:05 | W.PN.HOSP.TC ---
Today's Communication/Plan
-
IV steroids
IV Abx
oral Lasix
follow Cards/Pulm
PT/OT
Assessment / Plan
Assessment / Plan
Assessment:
Acute on chronic hypoxic respiratory failure
acute exacerbation of ILD
Hx of COPD and Asthma
Former smoker (20 pack years, quit age 33)
- continue Rocephin/Azithromycin
- continue IV steroids
- prn nebs
- Pulm consulted
Chronic HFpEF
- oral Lasix per [facility]
- Echo
Parox Afib
- continue Eliquis; not otherwise on rate control
CALVIN vs CKD
- obtain outpatient labs from PCP
- renal/bladder US without obstructive pathology
Essential HTN
- continue CCB
HLD - statin
DVT ppx: Eliquis
Code: DNR/DNI
Anticipated Discharge: > 48 hours
Subjective/Interval History
-
Date of Service: March 12, 2025
resting comfortably on 6L (baseline 2-3 L)
denies SOB or CP
Objective Data
-
Labs:
Laboratory Results
03/12/25
06:42
WBC 6.6
Hgb 12.9 L
Hct 38.3 L
Plt Count 235
Sodium 137
Potassium 4.9
Chloride 106
Carbon Dioxide 23
BUN 31 H
Creatinine 2.6 H
Glucose 129 H
Calcium 8.4
Vital Signs:
Vital Signs
Temp Pulse Resp BP Pulse Ox
97.5 F 90 18 106/62 99
03/12/25 11:36 03/12/25 11:36 03/12/25 11:36 03/12/25 11:36 03/12/25 11:36
Physical Exam
-
General: No Apparent Distress
HEENT: Normocephalic and Atraumatic
Respiratory: Rales and Decreased Breath Sounds
Cardiac: Regular Rhythm and S1/S2
GI: Soft
Neuro: AO x 3
Psych: Confused
Data Reviewed
-
Total Time Spent with Patient (in minutes): 45
Labs: Labs Reviewed by me
[2025-03-12 14:48] LABS: Procalcitonin 0.17 ng/ml (0.0-0.25)
[2025-03-12] MEDS: DUONEB INH (15:23)
--- NOTE | 2025-03-12 15:41 | CM ---
Patient admitted via ED from home with respiratory distress; currently on 6L O2.
Pt requesting hospice care at home. Referral sent to Hospice for evaluation.
Ambulance transport forms completed; Dr. Hyde to complete OOH DNR.
Plan: Pt to be discharged to home on 03/13/2025 with start of home hospice for 03/14/2025 at 1PM.
--- NOTE | 2025-03-12 15:44 | HOSPNOTE ---
Rec'd referral - spoke on the phone with daughter Mila - discussed hospice services and the support that would be available to her and her mom. Set up an appointment for Friday at 1PM to do an in person introduction and sign on at her request.
She feels comfortable taking her father home on Friday and feels that he would be less anxious in his own environment. TT to and CM plan. Hospice to admit at home on Wednesday 03/14. 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 Palliative Care team notified.
[2025-03-12] MEDS: LIPITOR 20 MG PO (16:29)
[2025-03-12] MEDS: SINGULAIR 10 MG PO (16:29)
[2025-03-12 16:37] VITALS: BP 113/73
[2025-03-12 19:49] VITALS: BP 120/70
[2025-03-12] MEDS: ROCEPHIN 1000 MG IV (22:49)
[2025-03-12] MEDS: STERILE WATER FOR INJECTION 10 ML IV (22:49)
[2025-03-12 23:36] VITALS: BP 121/84
[2025-03-13 03:22] VITALS: BP 111/56
[2025-03-13 06:00] VITALS: BMI 26.8
[2025-03-13] MEDS: FLOVENT 110 MCG INHALER 2 PUFF INH (07:14)
[2025-03-13 07:30] VITALS: BP 105/54
[2025-03-13 07:49] LABS: Blood Urea Nitrogen 49 mg/dl (9-20); Calcium 9.0 mg/dl (8.4-10.2); Carbon Dioxide 21 mmol/L (22-30); Chloride 108 mmol/L (98-107); Estimated Creatinine Clearance 21 ml/min; Glucose 129 mg/dl (70-99); Hematocrit 38.5 % (39.0-52.0); Hemoglobin 13.2 g/dL (13.0-18.0); Mean Corp Hgb Conc. 34.3 g/dL (33.0-37.0); Mean Corpuscular Volume 100.8 fL (80.0-94.0); Platelet Count 289 10^3/uL (130-400); Potassium 4.7 mmol/L (3.5-5.1); Red Cell Dist. Width 13.0 % (11.5-14.5); Sodium 137 mmol/L (135-145); eGFR 19.61
[2025-03-13 09:27] VITALS: BP 110/67; BP 125/70; PULSE 67; O2SAT 85
[2025-03-13] MEDS: LASIX 40 MG PO (09:40)
[2025-03-13] MEDS: ELIQUIS 5 MG PO ×2 (09:40→20:19)
[2025-03-13] MEDS: VITAMIN B-12 1000 MCG PO (09:40)
[2025-03-13] MEDS: NORVASC 2.5 MG PO (09:40)
[2025-03-13] MEDS: SOLU-MEDROL PF 40 MG IV ×2 (09:40→20:19)
[2025-03-13] MEDS: PROTONIX 40 MG PO ×2 (09:40→20:19)
[2025-03-13] MEDS: VIBRAMYCIN PO (09:50)
--- NOTE | 2025-03-13 11:02 | W.PN.HOSP.TC ---
Today's Communication/Plan
-
dc
Assessment / Plan
Assessment / Plan
Assessment:
Acute on chronic hypoxic respiratory failure
acute exacerbation of ILD
Hx of COPD and Asthma
Former smoker (20 pack years, quit age 33)
- stop Abx with neg procal
- dc on steroids with taper
- prn nebs
- Pulm consulted; recommended treatment but also hospice eval. Family agreeable to hospice and will sign on 03/14 at home.
Chronic HFpEF
- oral Lasix per [facility]
Parox Afib
- continue Eliquis; not otherwise on rate control
CALVIN vs CKD
- obtain outpatient labs from PCP
- renal/bladder US without obstructive pathology
Essential HTN
- continue CCB
HLD - statin
DVT ppx: Eliquis
Code: DNR/DNI
Dispo: home with hospice services to start 03/14
Anticipated Discharge: Today
Subjective/Interval History
-
Date of Service: March 13, 2025
on 2-3L satting low to mid 90s (85 without O2)
patient does not feel SOB
Objective Data
-
Labs:
Laboratory Results
03/13/25
06:58
WBC 10.5
Hgb 13.2
Hct 38.5 L
Plt Count 289 D
Sodium 137
Potassium 4.7
Chloride 108 H
Carbon Dioxide 21 L
BUN 49 H
Creatinine 3.0 H
Glucose 129 H
Calcium 9.0
Vital Signs:
Vital Signs
Temp Pulse Resp BP Pulse Ox
97.8 F 63 16 105/54 93
03/13/25 07:30 03/13/25 07:30 03/13/25 07:30 03/13/25 07:30 03/13/25 07:30
I&O
03/12/25 03/13/25 03/14/25
06:59 06:59 06:59
Intake Total 480 / 480
Output Total 500 / 500
Balance -20 / -20
Physical Exam
-
General: No Apparent Distress
HEENT: Normocephalic and Atraumatic
Respiratory: Rales
Cardiac: Regular Rhythm and S1/S2
GI: Soft
Musculoskeletal: No Edema
Neuro: Awake
Psych: Calm and Apparent Dementia
Data Reviewed
-
Total Time Spent with Patient (in minutes): 41
Labs: Labs Reviewed by me
--- NOTE | 2025-03-13 11:13 | W.DS.TRANS ---
DC Summary - Principal Developer
-
Discharge Instructions:
Discharge Diagnosis/Procedures acute ILD flare
Diet Regular
Additional Diets When hospice is signed on, diet restrictions can
be fully lifted - therefore patient can be on
regular diet
Activity As tolerated
Other Services Hospice
Instructions:
Stand-Alone Forms:
Changes to Home Medications: No
Discharge Medications:
DC Medications w/original date entered in [employer]
amlodipine 2.5 mg tablet 2.5 mg PO DAILY Blood pressure 07/18/21
ipratropium 0.5 mg-albuterol 3 mg (2.5 mg base)/3 mL nebulization soln 3 ml inhalation QID ##60 07/18/21
montelukast 10 mg tablet 10 mg PO QPM Lung/breathing issues 07/18/21
benzonatate 100 mg capsule 100 mg PO TIDPRN PRN cough 08/14/21
atorvastatin 20 mg tablet 20 mg PO QPM #30 tabs 08/17/21
cyanocobalamin (vitamin B-12) 1,000 mcg tablet 1,000 mcg PO DAILY #30 tabs 08/17/21
dextromethorphan-guaifenesin 10 mg-100 mg/5 mL oral syrup 5 ml PO Q4HPRN PRN cough ##1 08/17/21
ferrous sulfate 325 mg (65 mg iron) tablet (FeroSul) 325 mg PO DAILY #30 tabs 08/17/21
fluticasone propionate 110 mcg/actuation HFA aerosol inhaler (Flovent HFA) 2 puff inhalation R DAILY Lung/breathing issues ##0 08/17/21
folic acid 1 mg tablet 1 mg PO DAILY #30 tabs 08/17/21
furosemide 40 mg tablet 40 mg PO DAILY #30 tabs 08/17/21
pantoprazole 40 mg tablet,delayed release 40 mg PO BID #60 tabs 08/17/21
apixaban 2.5 mg tablet (Eliquis) 2.5 mg PO BID 14 days #28 tabs 08/23/21
oxycodone 5 mg tablet 5 mg PO Q4HPRN PRN mod pain #5 tabs 08/23/21
sennosides 8.6 mg-docusate sodium 50 mg tablet 1 tab PO DAILYPRN PRN constipation #5 tabs 08/23/21
lorazepam 1 mg tablet (Ativan) 1 mg PO TID PRN anxiety #5 tabs 03/13/25
prednisone 10 mg tablet 10 mg PO DIRECTED 10 days #35 tabs 03/13/25
prednisone 20 mg tablet 20 mg PO DAILY #30 tabs 03/13/25
Home Medication Changes
Pending Results: No
Total time spent discharging patient (in min): 41
--- NOTE | 2025-03-13 11:27 | HOSPNOTE ---
Spoke to the daughter and there was concern about patient going home today with and not having hospice readily available. Offered that could call into hospice tonight if there were questions but daughter still felt hesitant. Updated
Primary RN, CM, and Attending. Patient will remain in the hospital today, will d/c to home tomorrow at 11 am with family picker and sorter load and unload. Hospice will then be in the home at 1 pm to sign on. Daughter to picker and sorter load and unload ativan and prednisone scripts that were sent
to pharmacy in the morning as well. Emotional support provided.
[2025-03-13 11:30] VITALS: BP 123/66
[2025-03-13 12:54] VITALS: BP 108/62; PULSE 70; O2SAT 94
[2025-03-13] MEDS: VALIUM INJECTION 2.5 MG IV (15:37)
[2025-03-13 16:00] VITALS: BP 120/76
[2025-03-13] MEDS: LIPITOR 20 MG PO (17:58)
[2025-03-13] MEDS: SINGULAIR 10 MG PO (17:58)
[2025-03-14 00:04] VITALS: BP 121/70
[2025-03-14] MEDS: MORPHINE SULFATE 1 MG IV (00:15)
[2025-03-14] MEDS: ATIVAN 0.5 MG PO (01:00)
--- NOTE | 2025-03-14 01:00 | PTCARENOTE ---
Pt frequently setting off bed alarm. Asking repetitive questions about where his is. This RN attempted multiple times to redirect patient. Pt getting increasingly more anxious and agitated. Administered PRN IV morphine at 0015. Pt still
agitated, jumping out of bed, and beginning yell at staff. MADDISON Corbin notified of patient's behavior. One time order for 0.5 mg PO Ativan placed and administered. Plan of Care ongoing.
[2025-03-14 07:30] VITALS: BP 128/78
[2025-03-14] MEDS: LASIX 40 MG PO (07:59)
[2025-03-14] MEDS: ELIQUIS 5 MG PO (08:04)
[2025-03-14] MEDS: SOLU-MEDROL PF 40 MG IV (08:04)
[2025-03-14] MEDS: NORVASC 2.5 MG PO (08:04)
[2025-03-14] MEDS: PROTONIX 40 MG PO (08:04)
[2025-03-14] MEDS: FLOVENT 110 MCG INHALER 2 PUFF INH (08:09)
[2025-03-14] MEDS: VITAMIN B-12 1000 MCG PO (08:17)
[2025-03-14 08:21] LABS: Hematocrit 39.8 % (39.0-52.0); Hemoglobin 13.2 g/dL (13.0-18.0); Mean Corp Hgb Conc. 33.2 g/dL (33.0-37.0); Mean Corpuscular Volume 102.1 fL (80.0-94.0); Platelet Count 314 10^3/uL (130-400); Red Cell Dist. Width 12.8 % (11.5-14.5)
[2025-03-14 08:49] LABS: Blood Urea Nitrogen 63 mg/dl (9-20); Calcium 8.3 mg/dl (8.4-10.2); Carbon Dioxide 23 mmol/L (22-30); Chloride 106 mmol/L (98-107); Estimated Creatinine Clearance 19 ml/min; Glucose 109 mg/dl (70-99); Potassium 4.8 mmol/L (3.5-5.1); Sodium 137 mmol/L (135-145); eGFR 17.49
--- NOTE | 2025-03-14 10:16 | W.PN.HOSP.TC ---
Today's Communication/Plan
-
discharge
Assessment / Plan
Assessment / Plan
Assessment:
Acute on chronic hypoxic respiratory failure
acute exacerbation of ILD
Hx of COPD and Asthma
Former smoker (20 pack years, quit age 33)
- stop Abx with neg procal
- dc on steroids with taper
- prn nebs
- Pulm consulted; recommended treatment but also hospice eval. Family agreeable to hospice and will sign on 03/14 at home.
Chronic HFpEF
- oral Lasix per [facility]
Parox Afib
- continue Eliquis; not otherwise on rate control
CALVIN vs CKD
- obtain outpatient labs from PCP
- renal/bladder US without obstructive pathology
Essential HTN
- continue CCB
HLD - statin
DVT ppx: Eliquis
Code: DNR/DNI
Dispo: home with hospice services 03/14
Total discharge time spent to see the patient, examine the patient, review data and lab result, discuss discharge plan with patient, nursing staff around 65 minutes
Anticipated Discharge: Today
Subjective/Interval History
-
Date of Service: March 14, 2025
no pain
he denies chest pain or sob
Objective Data
-
Labs:
Laboratory Results
03/14/25
07:36
WBC 9.8
Hgb 13.2
Hct 39.8
Plt Count 314
Sodium 137
Potassium 4.8
Chloride 106
Carbon Dioxide 23
BUN 63 H
Creatinine 3.3 H
Glucose 109 H
Calcium 8.3 L
Vital Signs:
Vital Signs
Temp Pulse Resp BP Pulse Ox
98.0 F 68 18 128/78 94
03/14/25 07:30 03/14/25 08:12 03/14/25 08:12 03/14/25 07:59 03/14/25 08:12
I&O
03/13/25 03/14/25 03/15/25
06:59 06:59 06:59
Intake Total 480 / 480 960 / 960
Output Total 500 / 500
Balance -20 / -20 960 / 960
[2025-03-14 11:20] VITALS: BP 139/76
--- NOTE | 2025-03-14 11:56 | CM ---
Patient and daughter here to transport HOME w/ hospice
hospice to be at home at 1pm
IMM explained & signed. In chart
[facility] DNR signed & on chart
PLAN: Home with hospice
hospice fax #: [phone]
and daughter to transport
== END 2025-03-14 13:57 | disposition hospice, home (50) | DRG 196 ==
LOC: 3 WEST ACU 21:30
PROVIDERS: Emergency Medicine; Internal Medicine; ADMITTING PHYSICIAN Internal Medicine; ATTENDING PHYSICIAN Internal Medicine; CONSULT PHYSICIAN Internal Medicine; EMERGENCY PHYSICIAN Emergency Medicine
DX: J84.9 Interstitial pulmonary disease, unspecified (principal); J96.21 Acute and chronic respiratory failure with hypoxia; F03.911 Unspecified dementia, unspecified severity, with agitation; I13.0 Hypertensive heart and chronic kidney disease with heart failure and stage 1 through stage 4 chronic kidney disease, or unspecified chronic kidney disease; N18.4 Chronic kidney disease, stage 4 (severe); I50.32 Chronic diastolic (congestive) heart failure; I45.2 Bifascicular block; N17.9 Acute kidney failure, unspecified; G47.33 Obstructive sleep apnea (adult) (pediatric); I48.0 Paroxysmal atrial fibrillation; Z66 Do not resuscitate; Z51.5 Encounter for palliative care; E78.00 Pure hypercholesterolemia, unspecified; I44.0 Atrioventricular block, first degree; J44.89 Other specified chronic obstructive pulmonary disease; J84.112 Idiopathic pulmonary fibrosis; J47.9 Bronchiectasis, uncomplicated; J84.10 Pulmonary fibrosis, unspecified; Z87.891 Personal history of nicotine dependence; Z99.81 Dependence on supplemental oxygen; Z88.6 Allergy status to analgesic agent; Z88.0 Allergy status to penicillin; Z79.01 Long term (current) use of anticoagulants; Z79.52 Long term (current) use of systemic steroids; Z79.899 Other long term (current) drug therapy; Z11.52 Encounter for screening for COVID-19
CPT/HCPCS: 71046; 76770; 80048; 80053; 80061; 83735; 83880; 84100; 84145; 85025; 85027; 87811; 93005; 94640; 96374; 96375; 97162; 97167; 97530; 99285